=== PATIENT | male | born 1950 | race Caucasian/White ===

== ENCOUNTER 2020-05-27 10:26 | Inpatient (IN) | payer MEDICARE, BC ==
[~2020-05-27] VITALS: Ht 167.6 cm; Wt 80.0 kg
--- NOTE | 2020-05-27 10:35 | NUR ---
Patients stated that patient is allergic to oysters, patient is unsure if he actually is. states that mom told him he had an allergic reaction. Patient states that she has had contrast dye before and no problems. Dr. Rodríguez aware and is ok with continue to perform CTA with contrast.
--- NOTE | 2020-05-27 10:38 | NUR ---
Patient out to CT with Cora Stroke RN.
[2020-05-27 10:40] LABS: BASOPHILS # (AUTO) 0.1 X10'3 (0-0.2); BASOPHILS % (AUTO) 1.5 % (0-1); EOSINOPHILS # (AUTO) 0.5 X10'3 (0-0.9); EOSINOPHILS % (AUTO) 5.8 % (0-6); HEMATOCRIT 45.4 % (42.0-52.0); HEMOGLOBIN 15.3 g/dl (14.0-17.9); LYMPHOCYTES # (AUTO) 0.9 X10'3 (1.1-4.8); LYMPHOCYTES % (AUTO) 10.9 % (21-51); MEAN CORPUSCULAR HEMOGLOBIN 31.8 PG (27.0-31.0); MEAN CORPUSCULAR HGB CONC 33.8 g/dL (33.0-36.5); MEAN PLATELET VOLUME 7.9 FL (7.4-10.4); MONOCYTES # (AUTO) 1.2 X10'3 (0-0.9); MONOCYTES % (AUTO) 15.3 % (2-12); NEUTROPHILS # (AUTO) 5.3 X10'3 (1.8-7.7); NEUTROPHILS % (AUTO) 66.5 % (42-75); PLATELET COUNT 201 X10'3 (140-440); RED BLOOD COUNT 4.83 X10'6 (4.70-6.10); RED CELL DISTRIBUTION WIDTH 13.2 % (11.5-14.5); WHITE BLOOD COUNT 7.9 X10'3 (4.5-11.0)
[2020-05-27] MEDS ORDERED: iohexol 350MG/ML 100ml bottle IV ONE (10:42)
[2020-05-27 10:58] LABS: PARTIAL THROMBOPLASTIN TIME 27 SECONDS (22-32)
[2020-05-27 11:01] LABS: ALANINE AMINOTRANSFERASE 20 U/L (12-78); ALBUMIN 3.7 G/DL (3.4-5.0); ALBUMIN/GLOBULIN RATIO 1.2 (1.1-1.5); ALKALINE PHOSPHATASE 66 IU/L (46-116); ANION GAP 7 (8-16); ASPARTATE AMINO TRANSFERASE 16 U/L (10-37); BILIRUBIN,TOTAL 0.2 MG/DL (0.1-1.0); BLOOD UREA NITROGEN 18 MG/DL (7-18); BUN/CREATININE RATIO 19.4 (5.4-32.0); CHLORIDE 106 MMOL/L (99-107); CREATININE 0.93 MG/DL (0.60-1.10); GLUCOSE 115 MG/DL (70-104); POTASSIUM 3.7 MMOL/L (3.5-5.1); SODIUM 141 MMOL/L (135-145); TOTAL CARBON DIOXIDE 27.8 MMOL/L (24-32); TOTAL PROTEIN 6.8 G/DL (6.4-8.2); eGFR 81 ML/MIN
[2020-05-27 11:03] LABS: TROPONIN I < 0.04 NG/ML (0.0-0.05)
--- NOTE | 2020-05-27 11:20 | NUR ---
Tele neuro in progress at this time, Cora Stroke RN in room with patient to assist with examination.
[2020-05-27] MEDS ORDERED: aspirin 325mg tablet PO ONE (11:30)
[2020-05-27] MEDS ORDERED: MULT-1085 PO (12:07)
[2020-05-27] MEDS ORDERED: ASPI-1053 PO (12:07)
[2020-05-27] MEDS ORDERED: magnesium 2GM in 50ml NS 50 ML IV PRN (12:15)
[2020-05-27] MEDS ORDERED: potassium Cl 20 mEq SR tablet PO PRN ×2 (12:15)
[2020-05-27] MEDS ORDERED: magnesium hydroxide 30ml (MOM) UD suspension PO PRN (12:15)
[2020-05-27] MEDS ORDERED: potassium CL 10mEq/100ml bag 100 ML IV PRN ×2 (12:15)
[2020-05-27] MEDS ORDERED: acetaminophen 325mg tablet PO PRN ×2 (12:15)
[2020-05-27] MEDS ORDERED: mag hydrox/Alum hydrox/simeth 30ml oral suspension PO PRN (12:15)
[2020-05-27] MEDS ORDERED: morphine 2 MG/ML inj. syringe IV PRN (12:15)
[2020-05-27] MEDS ORDERED: ondansetron/PF 4mg/2ml inj IV PRN (12:15)
[2020-05-27] MEDS ORDERED: magnesium Cl slow-release 64mg tablet PO PRN (12:15)
[2020-05-27] MEDS ORDERED: magnesium 4gm in 100ml NS 100 ML IV PRN (12:15)
[2020-05-27] MEDS ORDERED: HYDROcodone/acetaminophen 5mg/325mg tablet PO PRN (12:15)
[2020-05-27] MEDS: normal saline 1000ml 1,000 ML IV SCH ×3 (12:29→23:00)
[2020-05-27 13:20] VITALS: BP 175/100
[2020-05-27 14:00] VITALS: BP 157/93
[2020-05-27 18:00] VITALS: BP 163/93
--- NOTE | 2020-05-27 18:19 | NUR ---
Problems reprioritized. Patient report given, questions answered & plan of care reviewed with Caitlin Jerome RN.
[2020-05-27] MEDS: K and/or MAG REPLACEMENT MC SCH (19:33)
[2020-05-27] MEDS: heparin, porcine 5000 units/ml vial SQ SCH (19:40)
[2020-05-27] MEDS ORDERED: temazepam 15mg capsule PO PRN (21:00)
[2020-05-27 22:00] VITALS: BP 155/90
[2020-05-28 02:00] VITALS: BP 157/96
[2020-05-28] MEDS: normal saline 1000ml 1,000 ML IV SCH ×2 (02:00→09:23)
--- NOTE | 2020-05-28 06:30 | NUR ---
Patient in room [facility]013. I have received report from Angelique and had the opportunity to ask questions and assume patient care.
--- NOTE | 2020-05-28 06:31 | NUR ---
Problems reprioritized. Patient report given, questions answered & plan of care reviewed with ISAMAR Leo.
[2020-05-28 08:00] VITALS: BP 172/96
[2020-05-28] MEDS ORDERED: aspirin 81mg tab.chew PO SCH (08:00)
[2020-05-28] MEDS: K and/or MAG REPLACEMENT MC SCH (08:00)
[2020-05-28] MEDS ORDERED: multivitamins, therapeutics tablet PO SCH (08:00)
[2020-05-28] MEDS: heparin, porcine 5000 units/ml vial SQ SCH (08:44)
[2020-05-28] MEDS ORDERED: LISI10TA4 PO (09:43)
[2020-05-28] MEDS ORDERED: ONDA4TAB6 PO (09:43)
[2020-05-28 10:37] LABS: BASOPHILS # (AUTO) 0.1 X10'3 (0-0.2); BASOPHILS % (AUTO) 0.4 % (0-1); EOSINOPHILS % (AUTO) 0.3 % (0-6); HEMATOCRIT 44.9 % (42.0-52.0); HEMOGLOBIN 14.9 g/dl (14.0-17.9); LYMPHOCYTES # (AUTO) 0.4 X10'3 (1.1-4.8); LYMPHOCYTES % (AUTO) 2.5 % (21-51); MEAN CORPUSCULAR HEMOGLOBIN 31.1 PG (27.0-31.0); MEAN CORPUSCULAR HGB CONC 33.2 g/dL (33.0-36.5); MEAN CORPUSCULAR VOLUME 93.6 FL (78-98); MONOCYTES % (AUTO) 7.1 % (2-12); NEUTROPHILS # (AUTO) 12.9 X10'3 (1.8-7.7); NEUTROPHILS % (AUTO) 89.7 % (42-75); PLATELET COUNT 201 X10'3 (140-440); RED CELL DISTRIBUTION WIDTH 13.1 % (11.5-14.5); WHITE BLOOD COUNT 14.4 X10'3 (4.5-11.0)
[2020-05-28 10:54] LABS: ALBUMIN 3.4 G/DL (3.4-5.0); ANION GAP 11 (8-16); BLOOD UREA NITROGEN 15 MG/DL (7-18); BUN/CREATININE RATIO 23.1 (5.4-32.0); CALCIUM 8.7 MG/DL (8.5-10.1); CHLORIDE 103 MMOL/L (99-107); CHOL/HDL RATIO 3.2 (0.00-4.99); CHOLESTEROL 155 MG/DL (0-200); CREATININE 0.65 MG/DL (0.60-1.10); GLUCOSE 123 MG/DL (70-104); HDL CHOLESTEROL 49 MG/DL (35-60); LDL CHOLESTEROL 94 MG/DL (50-100); MAGNESIUM 1.7 MG/DL (1.5-2.4); POTASSIUM 3.6 MMOL/L (3.5-5.1); SODIUM 139 MMOL/L (135-145); TRIGLYCERIDES 65 MG/DL (20-135); eGFR > 90 ML/MIN
--- NOTE | 2020-05-28 11:23 | NUR ---
PAGER ID: [phone] MESSAGE: Isaac, labs are back for Mr. Sánchez in 4013B, WBC 14.4, LDL 94 thank you Felipa
--- NOTE | 2020-05-28 11:30 | NUR ---
Called MD regarding labs. WBCs 14.4, LDL 94, Per MD, no new medications needed.
--- NOTE | 2020-05-28 12:11 | NUR ---
Student documentation: I have reviewed and agree with all interventions, assessments performed and documented by SN Marcus.
--- NOTE | 2020-05-28 12:29 | NUR ---
Reviewed discharge instructions with pt. Pt verbalized understanding. Pt is alert, oriented and anxious to go home. All of pt's belongings were returned to pt. Pt's spouse is at bedside. Pt was wheeled downstairs to be driven home by spouse.
== END 2020-05-28 12:25 | disposition home or self-care (01) | DRG 69 ==
LOC: ER 10:27 → ED HOLD 12:11 → ORTHO 4S 13:14
PROVIDERS: ADMIT Internal Medicine; ATTEND Internal Medicine
PROC: B3251ZZ Computerized Tomography (CT Scan) of Bilateral Common Carotid Arteries using Low Osmolar Contrast (ICD-10-PCS; principal; 2020-05-27)
PROC: B32G1ZZ Computerized Tomography (CT Scan) of Bilateral Vertebral Arteries using Low Osmolar Contrast (ICD-10-PCS; 2020-05-27)
PROC: B3281ZZ Computerized Tomography (CT Scan) of Bilateral Internal Carotid Arteries using Low Osmolar Contrast (ICD-10-PCS; 2020-05-27)
DX: G45.9 Transient cerebral ischemic attack, unspecified (principal); D72.828 Other elevated white blood cell count; I10 Essential (primary) hypertension; K21.9 Gastro-esophageal reflux disease without esophagitis; R11.10 Vomiting, unspecified; I25.10 Atherosclerotic heart disease of native coronary artery without angina pectoris; Q85.00 Neurofibromatosis, unspecified; Z79.82 Long term (current) use of aspirin; Z91.013 Allergy to seafood; Z79.899 Other long term (current) drug therapy
CPT/HCPCS: 36415; 70450; 70496; 70498; 70544; 70551; 71045; 80048; 80053; 80061; 83735; 84484; 85025; 85610; 85730; 87081; 93005; 93306; 97161; 97530; 99285; G0378; J1644; J2405; J7030; Q9967